=== PATIENT | female | born 1970 | race Caucasian/White ===

== ENCOUNTER 2020-11-03 19:29 | Emergency (ER) | payer SELFPAY ==
[~2020-11-03] VITALS: Ht 177.8 cm; Wt 98.4 kg
[2020-11-03 19:35] VITALS: BP 205/105
--- NOTE | 2020-11-03 19:35 | NUR ---
to bed via wheelchair
[2020-11-03] MEDS ORDERED: NACL 0.9% 1,000 ML IV SCH (20:05)
[2020-11-03] MEDS ORDERED: KETOROLAC 30 MG/ML VIAL IVP ONE (20:05)
[2020-11-03] MEDS ORDERED: ONDANSETRON 4 MG/2 ML VIAL IVP ONE (20:05)
--- NOTE | 2020-11-03 20:15 | NUR ---
50 yo f bib self with c/c of sharp abd pain 10/10 x today. pt stated she first felt gassy and abd pain followed. + n/v. denies fever, diarrhea, blood in stool and emesis. denies taking medication for pain. blood and urine collected, blood given to laboratory engineer. matt hx: htn, dm, gastric bypass
[2020-11-03 20:21] LABS: BASOPHILS # (AUTO) 0.1 K/uL (0.00-0.22); BASOPHILS % (AUTO) 0.5 % (0.0-2.0); EOSINOPHILS # (AUTO) 0.1 K/uL (0-0.4); EOSINOPHILS % (AUTO) 0.6 % (0.0-4.0); HEMATOCRIT 41.1 % (36-48); HEMOGLOBIN 13.7 g/dL (12.0-16.0); LYMPHOCYTES % (AUTO) 8.5 % (20.5-51.1); MEAN CORPUSCULAR HEMOGLOBIN 28 pg (27-31); MEAN CORPUSCULAR HGB CONC 33 g/dL (33-37); MEAN CORPUSCULAR VOLUME 85.5 fL (80-94); MONOCYTES # (AUTO) 0.7 K/uL (0.8-1.0); NEUTROPHILS # (AUTO) 10.4 K/uL (1.8-7.7); NEUTROPHILS % (AUTO) 84.4 % (42.2-75.2); PLATELET COUNT (AUTO) 296 K/uL (140-450); RED BLOOD CELL COUNT(AUTO) 4.81 MIL/uL (4.20-5.40); RED CELL DISTRIBUTION WIDTH 13.2 % (11.6-13.7); WHITE BLOOD COUNT (AUTO) 12.4 K/uL (4.8-10.8)
[2020-11-03 20:21] LABS: APPEARANCE,URINE CLEAR (CLEAR); BILIRUBIN,URINE NEGATIVE (NEGATIVE); BLOOD, URINE NEGATIVE (NEGATIVE); COLOR,URINE YELLOW (YELLOW); LEUKOCYTE ESTERASE ,URINE TRACE (NEGATIVE); NITRITE, URINE NEGATIVE (NEGATIVE); PH,URINE 8.5 (5.0-9.0); UGLUCOSE NEGATIVE (NEGATIVE)
[2020-11-03 20:25] LABS: RBC,URINE 0-5 /HPF (0-5)
--- NOTE | 2020-11-03 20:29 | NUR ---
PT TAKEN TO CT VIA W/C
[2020-11-03 20:33] LABS: ALBUMIN 3.8 g/dL (3.4-5.0); ANION GAP 13.5 (8-16); CARBON DIOXIDE 28.8 mmol/L (21-32); POTASSIUM 4.3 mmol/L (3.5-5.1); TOTAL BILIRUBIN 0.7 mg/dL (0.0-1.0)
--- NOTE | 2020-11-03 20:40 | NUR ---
pt back in bed.
[2020-11-03] MEDS ORDERED: MORPHINE SULFATE 4 MG/ML SYR IVP ONE (20:55)
--- NOTE | 2020-11-03 20:58 | NUR ---
pt stated pain continues. confirmed with pt she has a ride home per mds request. pt placed on o2 sat monitor.
--- NOTE | 2020-11-03 21:20 | NUR ---
pt stated pain has reduced to 5/10, stated she finally feels relief.
--- NOTE | 2020-11-03 21:52 | NUR ---
pt is sitting up in bed and in stable condition. vss. all needs met at this time. bed locked in lowest position, side rails x2.
[2020-11-03] MEDS ORDERED: ACET-8386 PO (22:18)
[2020-11-03] MEDS ORDERED: CIPR500T4 PO (22:18)
[2020-11-03] MEDS ORDERED: IBUP-2213 PO (22:18)
[2020-11-03] MEDS ORDERED: OMEP40EC24 PO (22:18)
[2020-11-03] MEDS ORDERED: ONDA8TAB87 PO (22:18)
[2020-11-03 22:34] VITALS: BP 178/71
--- NOTE | 2020-11-03 22:34 | NUR ---
Patient discharged with v/s stable. Written and verbal after care instructions given and explained. Patient alert, oriented and verbalized understanding of instructions. Ambulatory with steady gait. All questions addressed prior to discharge. ID band removed. Patient advised to follow up with PMD. Rx of norco, CIPROFLOXACIN, IBUPROFEN, PRILOSEC, AND ZOFRAN given. Patient educated on indication of medication including possible reaction and side effects. Opportunity to ask questions provided and answered.
== END 2020-11-03 22:34 | disposition home or self-care (01) ==
LOC: MED 19:29
DX: N39.0 Urinary tract infection, site not specified (principal); R11.2 Nausea with vomiting, unspecified; F17.210 Nicotine dependence, cigarettes, uncomplicated; Z98.890 Other specified postprocedural states; Z79.891 Long term (current) use of opiate analgesic; Z79.2 Long term (current) use of antibiotics; Z79.1 Long term (current) use of non-steroidal anti-inflammatories (NSAID); Z79.899 Other long term (current) drug therapy
CPT/HCPCS: 36415; 74176; 80053; 81001; 81025; 83690; 85025; 87086; 96361; 96374; 96375; 99284; J1885; J2270; J2405; J7030